=== PATIENT | male | born 2000 | race Caucasian/White ===

== ENCOUNTER 2019-12-23 01:48 | Emergency (ER) | payer OTHER, BC ==
--- NOTE | 2019-12-23 02:34 | EDM.PDOC ---
ED HPI GENERAL MEDICAL PROBLEM - General Chief Complaint: Upper Extremity Injury/Pain Stated Complaint: right hand Time Seen by Provider: 12/23/19 02:00 Source of Information: Reports: Patient History Limitations: Reports: No Limitations - History of Present Illness INITIAL COMMENTS - FREE TEXT/NARRATIVE: Teagan comes into [facility] ED following an accident at [employer] this early am when a 150# roll of plastic fell onto his R hand. There is residual pain and some dorsal swelling off the 1st,2nd and 3rd MC, without palpable deformity. Extension and flexion are present, without sensory or motor loss. He has taken no meds. right hand Pain Score (Numeric/FACES): 4 - Related Data Allergies Allergy/AdvReac Type Severity Reaction Status Date / Time No Known Allergies Allergy Verified 01/03/14 13:09 Home Meds: Home Meds Methylphenidate [Ritalin] 10 mg PO DAILY 01/03/14 [History] Past Medical History - Past Health History Medical/Surgical History: Denies Medical/Surgical History Social & Family History - Tobacco Use Smoking Status *Q: Current Every Day Smoker Years of Tobacco use: 5 Packs/Tins Daily: 0.5 Review of Systems - Review of Systems Review Of Systems: Comprehensive ROS is negative, except as noted in HPI. ED EXAM, GENERAL - Physical Exam Exam: See Below Exam Limited By: No Limitations General Appearance: Alert, WD/WN, Moderate Distress Head: Atraumatic, Normocephalic Neck: Normal Inspection, Supple Respiratory/Chest: Lungs Clear Cardiovascular: Regular Rate, Rhythm Back Exam: Normal Inspection Extremities: Other (R hand: dorsal swelling overlying the 1st, 2nd, and 3rd MC, no zane deformity, ext and flex are full, CMS intact) Neurological: Alert, Oriented, CN II-XII Intact, No Motor/Sensory Deficits Psychiatric: Normal Affect, Normal Mood Skin Exam: Warm, Dry, Intact, Normal Color, No Rash Lymphatic: No Adenopathy Course - Vital Signs Text/Narrative:: I reviewed x rays of R hand, no fx seen. A spoint was applied to the R hand for comfort. No meds administered. Last Recorded V/S: Last Vital Signs Temp 36.1 C 12/23/19 01:48 Pulse 68 12/23/19 01:48 Resp 16 12/23/19 01:48 BP 152/103 H 12/23/19 01:48 Pulse Ox 100 12/23/19 01:48 - Orders/Labs/Meds Orders: Active Orders 24 hr Category Date Time Status Hand Comp Min 3V Rt [CR] Stat Exams 12/23/19 02:01 Taken Departure - Departure Time of Disposition: 02:36 Disposition: Home, Self-Care 01 Condition: Fair Clinical Impression: Contusion of right hand, initial encounter - Discharge Information *PRESCRIPTION DRUG MONITORING PROGRAM REVIEWED*: Not Applicable *COPY OF PRESCRIPTION DRUG MONITORING REPORT IN PATIENT KAYLAH: Not Applicable Referrals: PCP,None [Primary Care Provider] - Sepsis Event Note - Evaluation Sepsis Screening Result: No Definite Risk - Focused Exam Vital Signs: Vital Signs Temp Pulse Resp BP Pulse Ox 12/23/19 01:48 36.1 C 68 16 152/103 H 100 Date Exam was Performed: 12/23/19 Time Exam was Performed: 02:29 - Problem List & Annotations (1) Contusion of right hand, initial encounter SNOMED Code(s): 2322986 Code(s): S60.221A - CONTUSION OF RIGHT HAND, INITIAL ENCOUNTER Status: Acute Current Visit: Yes Annotation/Comment:: Splinting for comfort, RICE, analgesic of choice. - Problem List Review Problem List Initiated/Reviewed/Updated: Yes - My Orders Last 24 Hours: My Active Orders 12/23/19 02:01 Hand Comp Min 3V Rt [CR] Stat - Assessment/Plan Last 24 Hours: My Active Orders 12/23/19 02:01 Hand Comp Min 3V Rt [CR] Stat Plan: He may return home this am, therapeutic measures as outlined, and RTW next shift , 3# lifting restriction for 5 days. Follow up if needed.
--- NOTE | 2019-12-23 10:17 | CR ---
INDICATION: 150 lb object fell off shelf onto hand. RIGHT HAND: Three views of the right hand revealed no evidence of a fracture, dislocation or other significant bone or joint abnormality. If symptoms persist - if occult fracture site is suspected clinically, re- examination in 10-14 days may be helpful. [facility]
== END 2019-12-23 02:44 | disposition home or self-care (01) ==
LOC: FB.ED 01:48
DX: S60.221A Contusion of right hand, initial encounter (principal); F17.210 Nicotine dependence, cigarettes, uncomplicated; W20.8XXA Other cause of strike by thrown, projected or falling object, initial encounter
CPT/HCPCS: 73130-RT; 99000; 99283-25